=== PATIENT | male | born 1980 | race Caucasian/White ===

== ENCOUNTER 2016-06-11 05:54 | Inpatient (IN) | payer OTHER ==
[2016-06-05 09:48] LABS: BASOPHILS 0.5 %; BASOPHILS ABSOLUTE 0.04 10/3/uL (0.0-0.16); EOSINOPHILS 0.9 %; EOSINOPHILS ABSOLUTE 0.08 10/3/uL (0.0-0.53); HEMATOCRIT 46.4 % (40.0-51.0); HEMOGLOBIN 15.9 g/dL (13.6-17.8); IMMATURE GRANULOCYTES 0.3 %; IMMATURE GRANULOCYTES ABSOLUTE 0.03 10/3/uL (0.0-0.11); LYMPHOCYTES 35.5 %; LYMPHOCYTES ABSOLUTE 3.06 10/3/uL (0.67-4.30); MEAN CORPUS HGB CONC 34.3 g/dL (32.0-36.0); MEAN CORPUSCULAR HEMOGLOB 28.8 pg (26.0-34.0); MEAN CORPUSCULAR VOLUME 83.9 fL (80-100); MEAN PLATELET VOLUME 10.4 fL (9.2-13.0); MONOCYTES 7.8 %; MONOCYTES ABSOLUTE 0.67 10/3/uL (0.21-1.20); NEUTROPHILS ABSOLUTE 4.73 10/3/uL (2.02-8.40); PLATELET COUNT 218 10/3/uL (150-400); RBC DISTRIBUTION WIDTH 14.3 % (12.0-16.0); RED CELL COUNT 5.53 10/6/uL (4.7-6.1); WHITE BLOOD CELLS 8.6 10/3/uL (4.5-10.5)
[2016-06-05 09:51] LABS: MANUAL DIFF NO %
[2016-06-05 09:54] LABS: INTERNATIONAL NORMAL RATI 1.1 UNITS (-); PARTIAL THROMBO TIME 27.2 SEC (22.5-37.2); PROTIME (NOT ORD) 14.4 SEC (12.0-14.5)
[2016-06-05 10:30] LABS: A/G RATIO 1.1 (0.7-1.9); ALBUMIN 4.1 G/DL (3.5-5.0); ALKALINE PHOSPHATASE 48 U/L (45-117); BUN (BLOOD UREA NITROGEN) 17 MG/DL (6-23); CALCIUM, SERUM 9.3 MG/DL (8.5-10.4); CHLORIDE, SERUM 103 MMOL/L (96-112); CHOL/HDL RATIO(NOT ORDER) 5.1 (0-5); CHOLESTEROL 187 MG/DL (< 200); CO2 (CARBON DIOXIDE) 26 MMOL/L (24-34); CREATININE 1.25 MG/DL (0.70-1.30); GFR AFRICAN AMERICAN 85 ML/MIN (>=60); GFR NON AFRICAN AMERICAN 74 ML/MIN (>=60); GLOBULIN 3.6 G/DL (2.5-4.1); HDL CHOLESTEROL 37 MG/DL (> 39); IRON, SERUM 66 MCG/DL (35-150); LDL CHOLESTEROL 118 MG/DL (< 130); NON-HDL CHOLESTEROL 150 MG/DL (< 160); POTASSIUM, SERUM 4.1 MMOL/L (3.5-5.3); SGOT(AST) 17 U/L (5-40); SGPT(ALT) 37 U/L (5-65); SODIUM, SERUM 141 MMOL/L (135-148); TOTAL BILIRUBIN 0.6 MG/DL (0-1.2); TOTAL PROTEIN 7.7 G/DL (6.0-8.5); TRIGLYCERIDE 162 MG/DL (< 150)
[2016-06-05 10:31] LABS: FOLATE 14.7 NG/ML (>5.2); GLUCOSE, SERUM 92 MG/DL (60-99)
[2016-06-05 10:41] LABS: ASCORBIC ACID (UR NOT ORDER) NEG (NEG); BILIRUBIN, URINE NEGATIVE (NEG); KETONE, URINE TRACE MG/DL (NEG); LEUKOCYTE ESTERASE(NOT OR NEG (NEG); WBC (NOT ORDERED) (RFLEX) 1 (0-5)
--- NOTE | ~2016-06-11 | HP ---
History And Physical [id number] [place]. [address] NAME: MURALI TAPIA : 80 STATUS : PRE IN PAT#: [id number] AGE: 36 ADM/REG DATE : MR#: [id number] REPORT SERV DATE: 06/09/16 DICTATED BY: KAREL SPIVEY DATE: 06/09/16 REPORT STATUS : Draft TRANSCRIBED BY: MODL DATE: 06/09/16 DATE OF ADMISSION: 06/11/2016 DICTATED BY: Ayana Malik, REGINALD, MOISÉS-C, GUSTAVON CHIEF COMPLAINT: Morbid obesity. HISTORY OF PRESENT ILLNESS: The patient is a 36-year-old white male, who presents for consideration for bariatric surgery. He has a long history of morbid obesity and has considered surgical intervention for weight loss for several years. He has attended the informational seminar at our office and has attempted previous weight loss attempts in the past including a low carb diet and other supervised weight loss attempts with his physician. He has successfully lost 95 pounds through his efforts. PAST MEDICAL HISTORY: The patient's past medical history is significant for metabolic syndrome, dyslipidemia, low testosterone, vitamin D deficiency. PAST SURGICAL HISTORY: The patient's surgical history is significant for a wisdom teeth extraction in 2011, and tonsillectomy with removal of adenoids in 1980. FAMILY HISTORY: The patient's father has a history of type 2 diabetes and obesity. His mother also has a history of obesity. SOCIAL HISTORY: The patient has a history of former nicotine use. He reports smoking for 16 years, but quit in 2009. He had a one pack per day history. He reports rare social alcohol. 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 CURRENT MEDICATIONS: Medications include alprazolam 1 mg tablets as needed; benazepril 10 mg daily; Clomid 50 mg, the patient takes half a tablet daily; escitalopram 10 mg daily; fish oil; metformin 500 mg twice daily. ALLERGIES: SULFA DRUGS. REVIEW OF SYSTEMS: As per HPI. PHYSICAL EXAMINATION: GENERAL: The patient is a pleasant 36-year-old male, who is well-nourished and morbidly obese in no acute distress, ambulating normally. HEENT: Head, pupils are equal, round, and reactive to light. Ear, nose, and throat are within normal limits. NECK: Neck is supple. Trachea is midline with no masses. CARDIOVASCULAR: Heart auscultation regular rate and rhythm. LUNGS: Respiratory effort with no dyspnea. Auscultation, no wheezing, rales, crackles, or rhonchi. Breath sounds are normal and clear to auscultation. ABDOMEN: Inspection and palpation, no tenderness, guarding, masses, or rebound tenderness History And Physical [address] [address] NAME: MURALI TAPIA : 80 STATUS : PRE IN PAT#: [id number] AGE: 36 ADM/REG DATE : MR#: [id number] REPORT SERV DATE: 06/09/16 DICTATED BY: KAREL SPIVEY DATE: 06/09/16 REPORT STATUS : Draft TRANSCRIBED BY: FARZANEH DATE: 06/09/16 noted. Abdomen is soft and nondistended. Bowel sounds normal. PSYCHIATRIC: Insight, good judgment. MENTAL STATUS: Normal mood and affect. The patient is active and alert, oriented to time, place, and person. LABORATORY DATA: Labs have been completed. CBC: His white blood count is 8.6 with a platelet of 218. PTT is 27.2, protime 14.4 with an INR of 1.1. Iron is 66, folate 14.7, vitamin B12 of 475. TSH is 2.260. Urinalysis shows a trace of ketones. Hemoglobin A1c is 5.3. DIAGNOSTIC TESTS: Bariatric GI air study was completed during preadmission testing showing normal upper GI series. No evidence of hiatal hernia. ASSESSMENT AND PLAN: This is a 36-year-old white male, seeking bariatric surgery, specifically the sleeve gastrectomy for the treatment of morbid obesity, having a BMI of 52.3 and a weight of 402 pounds. According to his current height and weight, he has 209.3 pounds of excess weight. This patient fulfills the [place] [employer] criteria for bariatric surgery according to the 1991 consensus, having either BMI of more than 40 kg/sq m or BMI between 35 and 40 kg/sq m with associated comorbidities. Has been overweight at least 5 years and has tried to lose weight several times and failed to maintain weight loss even with physician-supervised programs. Surgical weight loss options were presented including the Genia-en-Y gastric bypass, biliopancreatic diversion with duodenal switch, sleeve gastrectomy, and adjustable gastric banding. This patient has chosen a sleeve gastrectomy surgery because of the features of no need for adjustments and less invasive than Genia-en-Y gastric bypass with less risk of infection. The gastric bypass was not an option for this patient because of the invasiveness of the procedure, the associated risk, and the type of complications. The sleeve gastrectomy surgery in our experience can give this patient an average of 50% to 60% of excess weight loss over the next 12 to 18 months. The patient is aware of the risks and complications associated with the procedure, which include staple leak, bleeding, obstruction, and infection, which were discussed in length. Also this patient understands the importance of followup in order to achieve good results. Finally, this patient completed comprehensive education session with [employer] web-based informed consent. CATINA Karel Wesley M.D. / [id number] CC: Modesto Selby M.D.
--- NOTE | ~2016-06-11 | OP ---
Record Of Operation [facility] [address] [place]. [address] NAME: MURALI TAPIA : 80 STATUS : ADM IN PAT#: [id number] AGE: 36 ADM/REG DATE : 06/11/16 MR#: [id number] REPORT SERV DATE: 06/11/16 DICTATED BY: KAREL SPIVEY DATE: 06/11/16 REPORT STATUS : Draft TRANSCRIBED BY: FARZANEH DATE: 06/11/16 DATE OF PROCEDURE: PREOPERATIVE DIAGNOSIS: Morbid obesity. POSTOPERATIVE DIAGNOSIS: Morbid obesity. OPERATION: Laparoscopic sleeve gastrectomy. SURGEON: Karel Spivey M.D. ANESTHESIA: General endotracheal. COMPLICATION: None. INDICATION FOR PROCEDURE: This is a 36-year-old white male with morbid obesity with a BMI of 52.3 and a weight of 402 pounds and associated comorbidities which include dyslipidemia, metabolic syndrome. DESCRIPTION OF THE OPERATION: The patient was taken to the operating room, and after adequate general endotracheal anesthesia, was prepped and draped in a sterile manner. A total of 5 trocars were placed in the upper abdomen and carefully we the left lobe of the liver. Identified the upper stomach anatomy. We did remove some of the epiphrenic fat pad on top of the stomach using the Harmonic Scalpel. Then, we entered the lesser sac at the level of the lower body of the stomach next to the greater curvature and started dissecting the greater curvature with the Harmonic Scalpel all the way up to the fundus. The thickness of the fat was significant at that level and then we continued dissection on the fundus all the way up to the left rachael and completely dissected the left rachael posteriorly. Removed all the posterior adhesions from the stomach and then continued dissection at the greater curvature all the way down to the distal antrum to about 2-to-3 cm from the pylorus. Then when all the stomach was freed up, then we introduced a 36-[place]ian blunt-tip bougie suction catheter all the way down to the distal antrum, put it on suction to delineate well the stomach and then started stapling the stomach about 5 cm from the pylorus using the echelon automatic stapler with a green load and staple reinforcement using the SeamGuard. We put a total of 5 staplings from the bottom to the top. Staple line looked intact. There was no evidence of bleeding or oozing and then we tacked the greater omentum into the staple line at the top, middle, and lower portion with interrupted Vicryl 2 0 sutures and then removed the calibration tube and we put it in and out to verify there was no evidence of obstruction and then proceeded to remove the stomach specimen through the 15 mm trocar site after we stretched it with a Brandi and then closed that fascial defect with an EFX fascial closure device using a Vicryl #0 and then removed all the trocars and liver retractor under direct visualization and closed all the incisions with subcuticular Monocryl. The patient tolerated the procedure well and did not have any problems. Record Of Operation [address] [id number] [facility] [place]. [address] NAME: MURALI TAPIA : 80 STATUS : ADM IN [facility]#: [id number] AGE: 36 ADM/REG DATE : 06/11/16 MR#: [id number] REPORT SERV DATE: 06/11/16 DICTATED BY: KAREL SPIVEY DATE: 06/11/16 REPORT STATUS : Draft TRANSCRIBED BY: FARZANEH DATE: 06/11/16 GISELLE/FARZANEH Karel Wesley M.D. / [id number] CC: Karel Spivey M.D.
[~2016-06-11 05:54] MED LIST: CLOMID50 MG PO; FISH-EPA1000 MG PO; GLUCOPHAGE1000 MG PO; LOTE40 PO; VITAMIN D2000 UNIT PO
[2016-06-12] MEDS ORDERED: SUCR PO (11:48)
== END 2016-06-12 13:59 | disposition home or self-care (01) | DRG 621 ==
LOC: SDC/OF 05:54 → 2SO 12:20
PROVIDERS: Surgery
PROC: 0DB64Z3 Excision of Stomach, Percutaneous Endoscopic Approach, Vertical (ICD-10-PCS; principal; 2016-06-11 07:45)
DX: E66.01 Morbid (severe) obesity due to excess calories (principal); E88.81 Metabolic syndrome and other insulin resistance; I10 Essential (primary) hypertension; E78.5 Hyperlipidemia, unspecified; Z68.43 Body mass index [BMI] 50.0-59.9, adult; Z79.891 Long term (current) use of opiate analgesic; Z79.899 Other long term (current) drug therapy; Z88.2 Allergy status to sulfonamides; Z98.890 Other specified postprocedural states; Z83.3 Family history of diabetes mellitus; Z87.891 Personal history of nicotine dependence; Z87.442 Personal history of urinary calculi
CPT/HCPCS: 74246; 80053; 80061; 81001; 82607; 82746; 82962; 83036; 83540; 84443; 85025; 85610; 85730; 88307; 93005; A9270-GY; C9113; J0330; J0690; J2250; J2370; J2405; J2550; J2710; J2795; J3010